=== PATIENT | female | born 1955 | race Caucasian/White ===

== ENCOUNTER → 2017-01-09 | Outpatient (CLI) | payer BC, OTHER ==
[2017-01-09 19:39] LABS: Basophils # (A) 0.1 k/uL (0-0.2); Basophils % (A) 1 %; CH 29.8; CHCM 33.3; Eosinophils # (A) 0.2 k/uL (0-0.7); Eosinophils % (A) 3 %; HCT 41.3 % (34.0-46.0); HDW 2.31; HGB 14.1 gm/dL (11.4-16.0); Luc # (Auto) 0.17; Luc % (Auto) 3; Lymphocytes # (A) 1.3 k/uL (1.0-4.8); Lymphocytes % (A) 27 %; MCH 30.6 pg (25.0-35.0); MCV 89.9 fL (80.0-100.0); Mean Platelet Volume 8.1; Monocytes # (A) 0.3 k/uL (0-1.0); Monocytes % (A) 5 %; Neutrophils # (A) 3.1 k/uL (1.3-7.7); Neutrophils % (A) 61 %; RDW 12.5 % (11.5-15.5); WBC (Perox) 5.15
[2017-01-09 19:45] LABS: ALT 29 U/L (9-52); AST 21 U/L (14-36); Alkaline Phosphatase 48 U/L (38-126); Anion Gap 9 mmol/L; Blood Urea Nitrogen 12 mg/dL (7-17); Calcium 9.9 mg/dL (8.4-10.2); Carbon Dioxide 29 mmol/L (22-30); Chloride 103 mmol/L (98-107); Cholesterol 166 mg/dL (<200); Glucose 89 mg/dL (74-99); HDL Cholesterol 65 mg/dL (40-60); Non-African American GFR(MDRD) >60 (>60 ml/min/1.73 sqM); Potassium 4.4 mmol/L (3.5-5.1); Sodium 141 mmol/L (137-145); Total Bilirubin 0.9 mg/dL (0.2-1.3); Total Protein 7.2 g/dL (6.3-8.2); Triglycerides 80 mg/dL (<150)
== END | disposition home or self-care (01) ==
LOC: MMGSC 12:17
PROVIDERS: ATTEND Family Medicine
DX: Z00.00 Encounter for general adult medical examination without abnormal findings (principal); E78.5 Hyperlipidemia, unspecified
CPT/HCPCS: 36415; 80053; 80061; 84439; 84443; 85025

== ENCOUNTER → 2022-10-18 | Outpatient (CLI) | payer MEDICARE ==
[2022-10-18 20:23] LABS: HCT 45.1 % (37.2-46.3); HGB 14.2 g/dL (12.0-15.0); MCH 28.7 pg (27.0-32.0); MCHC 31.5 g/dL (32.0-37.0); MCV 91.1 fL (80.0-97.0); Mean Platelet Volume 11.2 fL (9.5-12.2); NRBC Per 100 WBC 0 /100 WBCS (0.0-0.0); Platelet Count 332 X 10*3/uL (140-440); RBC 4.95 X 10*6/uL (4.10-5.20); RDW 12.8 % (11.5-14.5); WBC 6.76 X 10*3/uL (4.50-10.00)
[2022-10-18 21:06] LABS: African American GFR (CKD) 97.6 (60.0-200.0); Blood Urea Nitrogen 10.9 mg/dL (9.0-27.0); Carbon Dioxide 26.5 mmol/L (20.0-27.5); Chloride 104 mmol/L (96-109); Chol/HDL Ratio 2.45 Ratio; LDL Cholesterol,Calculated 68.8 mg/dL (0.0-131.0); Non-African American GFR(CKD) 84.2 (60.0-200.0); Potassium 4.5 mmol/L (3.5-5.5); Sodium 143 mmol/L (135-145)
== END | disposition home or self-care (01) ==
LOC: LABPAT 12:39
PROVIDERS: ATTEND Nurse Practitioner Acute Care
DX: Z01.812 Encounter for preprocedural laboratory examination (principal); E78.2 Mixed hyperlipidemia; I47.1 Supraventricular tachycardia
CPT/HCPCS: 80051; 80061; 82565; 84520; 85027

== ENCOUNTER 2022-10-30 10:34 | Day surgery (SDC) | payer MEDICARE ==
[2022-10-25 08:50] VITALS: BMI 26.9
[~2022-10-30 10:34] MED LIST: DEXAMETHASONE SOD PHOSPHATE 4 MG/ML 1 ML VIAL IV ONE; HYDROmorphone 0.5 MG/0.5 ML SYRINGE IVP PRN; MIDAZOLAM 2 MG/2 ML VIAL IV PRN; ONDANSETRON 4 MG/2 ML VIAL IVP ONE
[2022-10-30] MEDS ORDERED: SODIUM CHLORIDE 0.9% 1,000 ML IV ONE (10:49)
[2022-10-30] MEDS ORDERED: PROPOFOL 10 MG/ML 20 ML VIAL IV ONE (14:10)
[2022-10-30] MEDS ORDERED: fentaNYL (PF) 50 MCG/ML 2 ML AMP ONE (14:10)
[2022-10-30] MEDS ORDERED: HYDROmorphone (PF) 1 MG/ML ONE (14:10)
[2022-10-30] MEDS ORDERED: ISOPROTERENOL 250 MCG/1.25 ML SYR IV ONE (14:10)
[2022-10-30] MEDS ORDERED: MIDAZOLAM 2 MG/2 ML VIAL ONE (14:10)
[2022-10-30] MEDS ORDERED: LIDOCAINE 1% INJ 10MG/ML (20 ML MDV) ONE (14:19)
[2022-10-30] MEDS ORDERED: LIDOCAINE 1% INJ 10MG/ML (20 ML MDV) SQ ONE (14:44)
[2022-10-30] MEDS ORDERED: HEPARIN SODIUM (1,000 UNIT/ML) 1,000 UNIT in SODIUM CHLORIDE 0.9% 1,000 ML IRRIGATION ONE (15:30)
--- NOTE | 2022-10-30 18:15 | P.HPCAR ---
History of Present Illness This is Dr. Adams dictating an H/P on this patient The patient was interviewed and examined IMPRESSION / ASSESSMENT: Recurrent SVT, symptomatic Dyslipidemia Mild CAD PLAN: Diagnostic EP study and benefits ablation for management of SVT HPI Patient has been experiencing recurrent palpitations She is agreeable to the hospital with palpitations and abnormal troponin She underwent coronary angiography which showed mild CAD in the LAD, 20-30% stenosis She was readmitted to [facility] with palpitations and was diagnosed with SVT She denies any syncope palpitations cough expectoration fever chills or chest pain in the last few weeks ROS: No fever chills or rigors, no cough, phlegm or expectoration, no nausea, vomiting or diarrhea, no hematuria, dysuria, no musculoskeletal complaints, no strokes or seizures, no skin lesions. EXAMINATION: Afebrile, pulse rate in the 60s, blood pressure 143/75 mmHg Breath sounds are clear no rhonchi no crackles Heart sounds S1 and S2 are normal no murmurs no gallops no rub Extended is warm no edema REVIEW OF LABS, ECG & MEDICAL DATA on ELIQUIS Lopressor and Crestor ELIQUIS was started for possible atrial flutter however she has SVT not atrial flutter and will be discontinued Physical Exam Vitals: Vital Signs Temp Pulse Resp BP Pulse Ox 10/30/22 10:56 97.2 F L 62 16 143/75 97 Intake and Output 10/30/22 10/30/22 10/30/22 06:59 14:59 22:59 Intake Total 800 399 Balance 800 399 Intake: IV 800 399 Other: Weight 66.67 kg Past Medical History Past Medical History: Atrial Fibrillation, Hyperlipidemia Additional Past Medical History / Comment(s): atrial fibrillation in March History of Any Multi-Drug Resistant Organisms: MRSA Date of last positivie culture/infection: 12 YEARS AGO-2010 MDRO Source:: BOIL TO GENITAL AREA + MRSA Past Surgical History: Section, Heart Catheterization Additional Past Surgical History / Comment(s): breast biopsy, LASER SX TO BILAT EYES, COLONOSCOPY Past Anesthesia/Blood Transfusion Reactions: No Reported Reaction Additional Past Anesthesia/Blood Transfusion Reaction / Comment(s): R/T Demerol Smoking Status: Never smoker - Past Family History Father Family Medical History: Cancer Additional Family Medical History / Comment(s): from colon cancer at 49 Mother Family Medical History: Cancer Additional Family Medical History / Comment(s): from bone cancer Brother(s) Additional Family Medical History / Comment(s): pacemaker Physical Examination Vital Signs Temp Pulse Resp BP Pulse Ox 10/30/22 10:56 97.2 F L 62 16 143/75 97 Intake and Output 10/30/22 10/30/22 10/30/22 06:59 14:59 22:59 Intake Total 800 399 Balance 800 399 Intake: IV 800 399 Other: Weight 66.67 kg Results Current Medications Generic Name Dose Route Start Last Admin Trade Name Freq PRN Reason Stop Dose Admin Hydromorphone HCl 0.5 mg 10/30/22 07:00 Hydromorphone 0.5 Mg/0.5 Ml Syringe IVP 10/30/22 23:00 Q5M PRN Phase 1 or 2 - Pain Control Sodium Chloride 1,000 mls @ 20 mls/hr 10/30/22 05:53 Saline 0.9% IV 11/29/22 05:54 .Q24H CLAUDIA Lactated Ringer's 1,000 mls @ 20 mls/hr 10/30/22 05:53 Lactated Ringers IV 11/29/22 05:54 .Q24H CLAUDIA Midazolam HCl 2 mg 10/30/22 05:53 Midazolam 2 Mg/2 Ml Vial IV 10/31/22 05:54 ONCE PRN Pre-Op Anxiety Intake and Output 10/30/22 10/30/22 10/30/22 06:59 14:59 22:59 Intake Total 800 399 Balance 800 399 Intake: IV 800 399 Other: Weight 66.67 kg Patient Weight 10/31/22 06:59 Weight 66.67 kg
[2022-10-30] MEDS ORDERED: ACETAMINOPHEN TAB 325 MG TAB PO PRN (18:21)
[2022-10-30] MEDS ORDERED: ACETAMINOPHEN IV (For NPO) 1,000 MG in EMPTY BAG 1 BAG IVPB ONE (18:21)
--- NOTE | 2022-10-30 18:21 | P.EPPROC ---
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 Informed consent was obtained prior to the procedure. The right and left groins were prepped and draped as a protocol Venous sheaths were placed in the right femoral vein and diagnostic catheters were positioned in the high right atrium His bundle area right ventricle and coronary sinus A diagnostic study is performed. Sinus cycle length 912 ms, NH interval 160 ms, QRS 101 ms and QT 404 ms AH 82 and HV 43 ms VA Wenckebach block the baseline state found and 50 ms Retrograde conduction midline and decremental Parahisian pacing was performed. Karen response is noted Sinus node recovery times at 600, 500 and, 400 ms were 1537, 1503 and 1351 Corresponding corrected sinus node recovery times a mildly prolonged If Celexa stimulation was performed. No evidence for accessory pathway noted SVT was induced on Isuprel Slow pathway conduction was documented antegrade SVT was induced with shortness septal time. VAAV response noted. A long PPI consistent with AV karen reentry Following that mapping of the slow pathway was performed mapping of the coronary sinus and the His bundle area is performed Is is a very long procedure and despite stepwise ablation, a CT could not be eliminated initially Ablation was performed first of the septum, then closer the septum near the floor of the coronary sinus just outside Subsequently RF ablation so delivered in the floor the coronary sinus and then at the roof Smith sinus Despite this SVT was still inducible and slow pathway still persisted. RF lesions were delivered at the level of the CS os, just outside it with junctional beats but SVT recurred despite This stepwise ablation was repeated several times before successful ablation was performed just inside the coronary sinus roof very close to our prior ablations This resulted in elimination of the slow pathway and SVT Testing was performed on and off Isuprel and at the end of the procedure after that last successful lesion no other STDs could be induced PHYSICAL removed. Hemostasis was assured
--- NOTE | 2022-10-30 18:24 | P.PRLE ---
RE: Suzanna Bradley Dear Felicita Suzanna underwent a diagnostic EP study which revealed typical AV node reentry. She underwent successful ablation of the slow pathway. This is a difficult p rocedure but we finally succeeded in eliminating the slow pathway at the roof of the coronary sinus She does not need ELIQUIS and I will be discontinuing this. She may also stop metoprolol but should continue the simvastatin since she has mild CAD Thank you for entrusting me with the care of the patient Warm regards Sincerely Raymon Adams
[2022-10-30] MEDS: SODIUM CHLORIDE 0.9% 1,000 ML IV SCH (19:52)
[2022-10-30] MEDS: LACTATED RINGERS 1,000 ML IV SCH (19:52)
[2022-10-30] MEDS ORDERED: ATORVASTATIN 40 MG TAB PO SCH (21:00)
[2022-10-31] MEDS: LACTATED RINGERS 1,000 ML IV SCH (02:54)
[2022-10-31] MEDS: SODIUM CHLORIDE 0.9% 1,000 ML IV SCH (02:54)
[2022-10-31 08:03] VITALS: BP 93/52; PULSE 65; RESP 16; TEMP 97.7
--- NOTE | 2022-10-31 10:54 | P.DS ---
Providers Attending physician: Raymon Adams Primary care physician: Felicita [facility] Course: Patient is resting comfortably in bed. 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 No indication for anticoagulation No arrhythmias other than AV mateus reentry were inducible lead EP study Plan - Discharge Summary Discharge Rx Participant: Yes New Discharge Prescriptions: Discontinued RX: Apixaban [Eliquis] 5 mg PO BID #60 tab RX: Metoprolol Tartrate [Lopressor] 12.5 mg PO BID #60 tab No Action RX: Rosuvastatin [Crestor] 20 mg PO HS Discharge Medication List RX: Rosuvastatin [Crestor] 20 mg PO HS 09/20/22 [History] Follow up Appointment(s)/Referral(s): Jonathan Alas DO [STAFF PHYSICIAN] - 11/08/22 3:00 pm Activity/Diet/Wound Care/Special Instructions: Post EP study - Ablation instructions 1. Keep access sites dry for 2 days. 2. No heavy lifting or straining for 2 days. 3. Avoid bending the hips repeatedly for 2 days. 4. You may go up and down stairs slowly Call if the following is noted 1. Bleeding, increasing swelling or pain at the access sites. 2. Increasing chest discomfort, especially upon taking a deep breath. 3. Increasing shortness of breath, at rest or with exertion. 4. Undue cough / phlegm 5. Difficulty or pain while swallowing. 6. Pain or change in color in the extremities. 7. Fever, chills, rigors. 8. Increasing headache or neurologic symptoms. 9. Dizziness, fainting, palpitations Stop ELIQUIS Stop metoprolol Discharge Disposition: HOME SELF-CARE
== END 2022-10-31 15:04 | disposition home or self-care (01) ==
LOC: CATHEP 10:34 → 6NMEDSUR 17:52 → CATHEP 10-31 15:04
PROVIDERS: ATTEND Internal Medicine Clinical Cardiac Electrophysiology
DX: I47.1 Supraventricular tachycardia (principal); I44.1 Atrioventricular block, second degree; I25.10 Atherosclerotic heart disease of native coronary artery without angina pectoris; E78.5 Hyperlipidemia, unspecified; I48.91 Unspecified atrial fibrillation; Z86.14 Personal history of Methicillin resistant Staphylococcus aureus infection; Z80.0 Family history of malignant neoplasm of digestive organs; Z80.8 Family history of malignant neoplasm of other organs or systems; Z79.899 Other long term (current) drug therapy; Z79.01 Long term (current) use of anticoagulants
CPT/HCPCS: 93653; 93623; C1894 ×2; C1769; C1760; C1730 ×3; C1893; C1732; J2001; J1644; J0131

== ENCOUNTER → 2024-10-01 | Outpatient (CLI) | payer MEDICARE ==
[2024-10-01 12:49] LABS: African American GFR (CKD) >90 (>60 ml/min/1.73 sqM); Blood Urea Nitrogen 14 mg/dL (7-17); Non-African American GFR(CKD) 89 (>60 ml/min/1.73 sqM)
--- NOTE | 2024-10-01 13:25 | CT ---
EXAMINATION TYPE: CT chest abdomen w con CT DLP: 585.0 mGycm, Automated exposure control for dose reduction was used. DATE OF EXAM: 10/01/2024 1:12 PM COMPARISON: Chest radiograph 09/25/2024, abdominal radiograph 09/25/2024. CLINICAL INDICATION:Female, 69 years old with history of R22.2 LOCALIZED SWELLING, MASS AND LUMP, ALEX NK; PHH, Lesion above left kidney. Technique: Multiple axial images of the chest and abdomen were obtained following the intravenous adm inistration of 100 mL Isovue-300. Two-dimensional coronal and sagittal reconstructions were obtained. Findings: CHEST: LUNGS/ PLEURA: No pleural effusion, pneumothorax, focal consolidation. Scattered bibasilar linear sca rring and/or atelectasis. No suspicious pulmonary nodule or mass. AIRWAY: Patent and unremarkable.. HEART: Size within normal limits.No pericardial effusion. No significant coronary artery calcificatio ns. MEDIASTINUM: No evidence of adenopathy. Left hilar calcified granulomas. VASCULATURE: No aortic aneurysm. MUSCULOSKELETAL: No acute osseous abnormalities. Chronic appearing anterior wedge compression deformi ty of the T12 vertebral body without retropulsion. Approximately 20% height loss. Prominent Schmorl's nodes involving the superior endplate of the T11 vertebral body. SOFT TISSUES/LYMPH NODES: Unremarkable. LOWER NECK: No significant findings. ABDOMEN: ABDOMEN LIVER: Unremarkable GALLBLADDER AND BILE DUCTS: Unremarkable. PANCREAS: Unremarkable. SPLEEN: Nonenlarged. Inferior peripherally calcified 2.4 cm cystic lesion. ADRENAL GLANDS: Unremarkable. KIDNEYS AND URETERS: No evidence of hydronephrosis or renal calculus. The kidneys enhance symmetrical ly. Contrast is demonstrated within both collecting systems on the delayed phase. BLADDER: The visualized portion of the bladder dome is unremarkable. REPRODUCTIVE: The visualized portion of the uterine fundus is unremarkable. STOMACH AND BOWEL: Small hiatal hernia, duodenum is unremarkable. Scattered sigmoid diverticulosis wi thout visualized acute diverticulitis. Mild amount of stool is present throughout the colon. No focal bowel wall thickening or surrounding inflammatory changes. The appendix is within normal limits. Ent jamila contrast reaches the mid to distal small bowel. No evidence of bowel obstruction. PERITONEUM: No evidence of pneumoperitoneum or free fluid. VASCULATURE: Mild atherosclerotic calcifications are present throughout the abdominal aorta and its b ranches. No abdominal aortic aneurysm. MUSCULOSKELETAL: No acute osseous abnormalities. Multilevel degenerative disc disease. Mild retrolist hesis of L1 on L2. Mild S-shaped scoliotic curvature of the lower thoracolumbar spine. LYMPH NODES: No evidence for lymphadenopathy. SOFT TISSUE/ABDOMINAL WALL: Unremarkable IMPRESSION: 1. No acute process within the chest or abdomen. 2. Peripherally calcified splenic 2.4 cm cystic lesion. Etiologies include traumatic pseudocyst versu s parasitic cyst versus epidermoid cyst. 3. Sigmoid diverticulosis without evidence for acute diverticulitis. [facility], , 10/01/2024 1:22 PM
== END | disposition home or self-care (01) ==
LOC: RADCTMAIN 12:04
PROVIDERS: ATTEND Family Medicine
DX: K57.30 Diverticulosis of large intestine without perforation or abscess without bleeding (principal); R19.00 Intra-abdominal and pelvic swelling, mass and lump, unspecified site
CPT/HCPCS: 82565; 84520; 71260; 74160; 36415; Q9967